=== PATIENT | female | born 1955 | race Caucasian/White ===

== ENCOUNTER 2024-12-29 22:50 | Emergency (ER) | payer SELFPAY ==
--- NOTE | ~2024-12-29 | CT_ITS ---
CLINICAL HISTORY: Fall; EtOH CT head without contrast Comparison: None provided. Findings: No intracranial mass, midline shift, hydrocephalus, or acute hemorrhage. There is generalized cerebral volume loss. Mild nonspecific white matter changes are identified, which may be seen in the setting of chronic small vessel ischemic disease. Minimal mucosal thickening present at the right posterior ethmoid air cells. The bilateral mastoid air cells appear clear. No acute skull fracture. Hyperostosis frontalis interna present. Impression: 1. No acute intracranial abnormality. No acute intracranial hemorrhage. This document has been electronically signed by: Macario Arce MD on 12/30/2024 02:54:09
--- NOTE | ~2024-12-29 | CT_ITS ---
CLINICAL HISTORY: Fall; Head Strike; EtOH CT cervical spine without contrast Comparison: None provided. Findings: Mild motion artifact present, particularly of the inferior aspect of the cervical spine. The visualized portions of the bilateral lung apices appear clear. No cervical spondylolisthesis. Rlfs-[id number] degenerative endplate changes are present at the cervical spine. Vacuum disc phenomenon present at the C5-C6 and C6-C7 levels. Multilevel bilateral degenerative facet arthropathy also present at the cervical spine. No acute fractures or dislocations. Impression: 1. No acute fracture or dislocation injury identified at the cervical spine. This document has been electronically signed by: Macario Arce MD on 12/30/2024 03:00:35
[2024-12-29 23:03] VITALS: BP 113/47; PULSE 71; RESP 20; O2SAT 95; BMI 28.2
--- NOTE | 2024-12-30 00:14 | ED_ITS ---
HPI - General Adult General Chief complaint: General Medical Stated complaint: etoh,?ams, found wandering streets Time Seen by Provider: 12/30/24 00:13 Source: patient and EMS Mode of arrival: EMS Limitations: no limitations History of Present Illness ED Provider: Ramón MEJIAS HPI narrative: The patient is a 69-year-old female presenting to the ED via EMS after she was found wandering alone in the street. Patient reports she is homeless and admits to alcohol use daily, including today. The patient reports she fell today, initially reports she fell onto her left elbow, however then reports she fell flat on her back and struck her head, but then complains of left knee pain. The patient's ability to provide a reliable HPI is questionable. Related Data Allergies Allergy/AdvReac Type Severity Reaction Status Date / Time No Known Allergies Allergy Verified 12/29/24 23:09 Review of Systems Review of Systems: Yes all other systems are reviewed and are negative PMFSH Social History Social History Advance Directives: No Advance Directives Information Provided: Yes Physical Exam ED Vital Signs: Vital Signs - 24 hr 12/29/24 23:03 Respiratory Rate 20 BMI result Body Mass Index 28.2 CONSTITUTIONAL: The patient appears clinically intoxicated, odor of EtOH metabolites on breath, moderately unkempt, otherwise non-toxic, well nourished and in no acute distress. Vital signs as documented. HEAD: Atraumatic, normocephalic. EYES: EOMs grossly intact, pupils equal, conjunctiva clear, no exudate. ENT: Nares patent, no discharge. Airway patent, no audible stridor, visible mucosa is pink and moist without noted lesions. NECK: Trachea is midline, no obvious masses or gross abnormalities. CHEST: Symmetric movement, normal appearance. LUNGS: LS present and CTAB, no w/r/r. Non-labored work of breathing. CARDIAC: Regular Rhythm, S1/S2 appreciated, no murmurs, rubs or gallops. ABDOMEN: Abdomen soft and non-tender x4 quadrants, no palpable masses or organomegaly. : Deferred. EXTREMITIES: Normal tone, moves all extremities spontaneously without reported pain. Left knee and elbow show no open injury, swelling, contusion, deformity, bony tenderness, crepitus, or impaired range of motion. Distal CSM intact. No obvious acute injury or deformity noted. NEURO: Alert and oriented to person and place, disoriented to time, patient unable or unwilling to cooperate with the remainder of neurologic exam. PSYCH: Flattened affect, otherwise appropriate eye contact, fluid speech, with appropriate response to questioning. No reported suicidality or homicidality. SKIN: Warm, dry, color appropriate, normal turgor. No rashes noted. Medical Decision Making Medical Decision Making MDM Narrative: 2:14 AM 12/30/2024 (Teresa MEJIAS): The patient is a 69-year-old female presenting to the ED via EMS after she was found wandering alone in the street. Patient reports she is homeless and admits to alcohol use daily, states she drinks about 6 oz of hard liquor daily, including today. The patient reports she fell today, initially reports she fell onto her left elbow, however then reports she fell flat on her back and struck her head, but then complains of left knee pain. The patient's ability and/or willingness to provide a reliable HPI is questionable. The patient appears clinically intoxicated, with a odor of EtOH metabolites on breath, exam is otherwise unremarkable. Examination of the patient's left elbow and left knee demonstrate no acute injury, no open injury, bony tenderness, impaired range of motion, contusion, swelling, or other acute finding. The patient will be evaluated with basic labs, toxicology workup, and CT head and neck. 3:06 AM 12/30/2024 (Teresa MEJIAS): The patient underwent CT head and neck, both of which show no evidence of acute fracture, no intracranial hemorrhage. The patient is refusing vital signs, laboratory evaluation, or other intervention. The patient is now able to ambulate with a steady gait to the bathroom and back to her exam room, patient is also eating a pizza she brought into the ED with her, without choking or evidence of discomfort. The patient is also attempting to smoke cigarettes and is demanding hot coffee. The patient appears clinically sober and will be discharged to her own care. Radiology Impression Discussion of test interpretation with radiology: I have reviewed the radiologist's reading. Radiologist Impression: CT cervical spine without contrast Comparison: None provided. Findings: Mild motion artifact present, particularly of the inferior aspect of the cervical spine. The visualized portions of the bilateral lung apices appear clear. No cervical spondylolisthesis. [id number] degenerative endplate changes are present at the cervical spine. Vacuum disc phenomenon present at the C5-C6 and C6-C7 levels. Multilevel bilateral degenerative facet arthropathy also present at the cervical spine. No acute fractures or dislocations. Impression: 1. No acute fracture or dislocation injury identified at the cervical spine. This document has been electronically signed by: Macario Arce MD on 12/30/2024 03:00:35 CT head without contrast Comparison: None provided. Findings: No intracranial mass, midline shift, hydrocephalus, or acute hemorrhage. There is generalized cerebral volume loss. Mild nonspecific white matter changes are identified, which may be seen in the setting of chronic small vessel ischemic disease. Minimal mucosal thickening present at the right posterior ethmoid air cells. The bilateral mastoid air cells appear clear. No acute skull fracture. Hyperostosis frontalis interna present. Impression: 1. No acute intracranial abnormality. No acute intracranial hemorrhage. This document has been electronically signed by: Macario Arce MD on 12/30/2024 02:54:09 Discharge Plan Discharge Clinical Impression: Housing insecurity Fall Qualifiers: Encounter type: initial encounter Qualified Code(s): W19.XXXA - Unspecified fall, initial encounter Alcohol dependence Qualifiers: Substance use status: uncomplicated Qualified Code(s): F10.20 - Alcohol dependence, uncomplicated Patient Disposition: Home, Self-Care Instructions: Abuse of Alcohol (ED), Fall Prevention (ED), Alcohol Dependence (ED) Additional Instructions: Thank you for choosing [facility] for your care today. Thankfully your CT head and neck today showed no evidence of acute injury from your fall. At this time there is no indication for admission to the hospital or continued ED observation, and it is safe to discharge you home. Please stay well hydrated and get plenty of rest. You may apply ice for 20 minutes every hour to your knee and elbow as needed. Please follow up with your primary care physician for re-evaluation, additional management of your symptoms, and continued preventative care. If you do not have a primary care physician, please call the [facility] at [phone] to establish a new primary care physician. While waiting to establish your new primary care physician, you can call our [facility] at [phone] for non-emergency needs. Please return to the emergency department if you develop a severe or sudden change in your symptoms, a fever over 100.4 that does not improve with Tylenol or Ibuprofen, recurrent vomiting, or any other new or worsening symptoms or concerns. Print Language: Swedish
--- NOTE | 2024-12-30 02:46 | PC.NURSE ---
Pt has refused on multiple occassions to have vitals and blood work done. [facility] made aware.
[2024-12-30 03:57] VITALS: BP 00/00; PULSE 0; RESP 0; TEMP -17.7; TEMP 0
== END 2024-12-30 03:57 | disposition home or self-care (01) ==
PROVIDERS: Emergency Provider Emergency Medicine
DX: S59.902A Unspecified injury of left elbow, initial encounter (principal); R41.82 Altered mental status, unspecified; M54.2 Cervicalgia; F10.20 Alcohol dependence, uncomplicated; Y90.9 Presence of alcohol in blood, level not specified; R51.9 Headache, unspecified; M54.50 Low back pain, unspecified; X58.XXXA Exposure to other specified factors, initial encounter; Y93.9 Activity, unspecified; Y92.9 Unspecified place or not applicable; Y99.8 Other external cause status; Z59.00 Homelessness unspecified
CPT/HCPCS: 70450; 72125; 99282; 99284

== ENCOUNTER → 2024-12-30 01:29 | Outpatient (BNV) | payer SELFPAY | PROVIDERS: Emergency Provider Emergency Medicine; Visit Provider Radiology Diagnostic Radiology | DX: M50.322 Other cervical disc degeneration at C5-C6 level (principal); I67.82 Cerebral ischemia | CPT/HCPCS: 70450; 72125 ==